=== PATIENT | female | born 1940 | race Caucasian/White ===

== ENCOUNTER → 2016-08-01 | Outpatient (CLI) | payer OTHER ==
[~2016-08-01] MED LIST: ASPI81TA28 PO; CMD4 PO; CYAN500T PO; DOCU100C31 PO; ISOS-10 PO; LOSA25TA18 PO; METO50TA16 PO; NTRGSL/4 SL; OMEP20CA59 PO; PRENTAB26 PO; VITA400C3 PO; WARF-285 PO
[2016-08-01 13:23] LABS: INR 1.8 (0.9-1.1); PROTHROMBIN TIME (PATIENT) 20.1 SECONDS (9.0-12.0)
== END | disposition home or self-care (01) ==
LOC: C.LABSPEC 12:26
PROVIDERS: ATTEND Internal Medicine Cardiovascular Disease
DX: Z51.81 Encounter for therapeutic drug level monitoring (principal); Z79.01 Long term (current) use of anticoagulants

== ENCOUNTER → 2016-08-29 | Outpatient (CLI) | payer OTHER ==
[2016-08-29 13:44] LABS: INR 3.1 (0.9-1.1); PROTHROMBIN TIME (PATIENT) 34.6 SECONDS (9.0-12.0)
== END | disposition home or self-care (01) ==
LOC: C.LABSPEC 13:03
PROVIDERS: ATTEND Internal Medicine Cardiovascular Disease
DX: Z79.01 Long term (current) use of anticoagulants (principal); Z51.81 Encounter for therapeutic drug level monitoring

== ENCOUNTER → 2016-09-26 | Outpatient (CLI) | payer OTHER ==
[2016-09-26 13:58] LABS: INR 3.3 (0.9-1.1)
== END | disposition home or self-care (01) ==
LOC: C.LABSPEC 12:51
PROVIDERS: ATTEND Internal Medicine Cardiovascular Disease
DX: Z51.81 Encounter for therapeutic drug level monitoring (principal); Z79.01 Long term (current) use of anticoagulants

== ENCOUNTER → 2016-10-24 | Outpatient (CLI) | payer OTHER ==
[2016-10-24 14:13] LABS: INR 2.3 (0.9-1.1); PROTHROMBIN TIME (PATIENT) 25.1 SECONDS (9.0-12.0)
== END | disposition home or self-care (01) ==
LOC: C.LABSPEC 12:52
PROVIDERS: ATTEND Internal Medicine Cardiovascular Disease
DX: Z51.81 Encounter for therapeutic drug level monitoring (principal); Z79.01 Long term (current) use of anticoagulants

== ENCOUNTER → 2016-11-21 | Outpatient (CLI) | payer OTHER ==
[2016-11-21 12:24] LABS: INR 2.4 (0.9-1.1); PROTHROMBIN TIME (PATIENT) 26.9 SECONDS (9.0-12.0)
== END | disposition home or self-care (01) ==
LOC: C.LABSPEC 11:53
PROVIDERS: ATTEND Internal Medicine Cardiovascular Disease
DX: Z51.81 Encounter for therapeutic drug level monitoring (principal); Z79.01 Long term (current) use of anticoagulants

== ENCOUNTER → 2016-12-23 | Outpatient (CLI) | payer OTHER ==
--- NOTE | 2016-12-23 15:28 | DIAGNOSTIC IMAGING REPORT ---
CHEST 2 VIEWS ROUTINE HISTORY: Bronchitis, pneumonia COMPARISON: Chest CT 08/11/2016. Chest 01/23/2015. FINDINGS: Postoperative changes consistent with prior right upper lobectomy. This accounts for the volume loss within the right hemithorax. Linear density at the left midlung zone favor subsegmental atelectasis or scarring. The lungs are otherwise clear. Poststernotomy changes. The heart is normal in size. Aortic arch calcifications. No pleural effusions. No pneumothorax. Mild emphysema. IMPRESSION: 1. Linear density at the left midlung zone favor scarring or subsegmental atelectasis. 2. Emphysema. 3. Postoperative changes within the right hemithorax. Electronically signed by: Fuad Benton M.D. 12/23/2016 3:27 PM Dictated Date/Time: 12/23/2016 3:25 PM
== END | disposition home or self-care (01) ==
LOC: C.RAD 14:52
PROVIDERS: ATTEND Internal Medicine
DX: J40 Bronchitis, not specified as acute or chronic (principal); J43.9 Emphysema, unspecified

== ENCOUNTER → 2016-12-23 | Outpatient (CLI) | payer OTHER ==
[2016-12-23 19:54] LABS: PROTHROMBIN TIME (PATIENT) > 100.0 SECONDS (9.0-12.0)
[2016-12-23 19:55] LABS: INR > 8.0 (0.9-1.1)
== END | disposition home or self-care (01) ==
LOC: C.LABSPEC 17:50
PROVIDERS: ATTEND Internal Medicine Cardiovascular Disease
DX: Z51.81 Encounter for therapeutic drug level monitoring (principal); Z79.01 Long term (current) use of anticoagulants

== ENCOUNTER → 2016-12-26 | Outpatient (CLI) | payer OTHER ==
[2016-12-26 18:07] LABS: PROTHROMBIN TIME (PATIENT) 67.7 SECONDS (9.0-12.0)
[2016-12-26 18:14] LABS: INR 5.9 (0.9-1.1)
== END | disposition home or self-care (01) ==
LOC: C.LABSPEC 11:46
PROVIDERS: ATTEND Internal Medicine Cardiovascular Disease
DX: Z51.81 Encounter for therapeutic drug level monitoring (principal); Z79.01 Long term (current) use of anticoagulants

== ENCOUNTER → 2016-12-29 | Outpatient (CLI) | payer OTHER ==
[2016-12-29 13:26] LABS: INR 1.6 (0.9-1.1); PROTHROMBIN TIME (PATIENT) 17.8 SECONDS (9.0-12.0)
== END | disposition home or self-care (01) ==
LOC: C.LABSPEC 12:18
PROVIDERS: ATTEND Internal Medicine Cardiovascular Disease
DX: Z51.81 Encounter for therapeutic drug level monitoring (principal); Z79.01 Long term (current) use of anticoagulants

== ENCOUNTER → 2017-01-02 | Outpatient (CLI) | payer OTHER ==
[2017-01-02 12:20] LABS: INR 1.8 (0.9-1.1); PROTHROMBIN TIME (PATIENT) 19.3 SECONDS (9.0-12.0)
== END | disposition home or self-care (01) ==
LOC: C.LABSPEC 10:30
PROVIDERS: ATTEND Internal Medicine Cardiovascular Disease
DX: Z79.01 Long term (current) use of anticoagulants (principal); Z51.81 Encounter for therapeutic drug level monitoring

== ENCOUNTER → 2017-01-06 | Outpatient (CLI) | payer OTHER ==
[2017-01-06 12:45] LABS: INR 2.4 (0.9-1.1); PROTHROMBIN TIME (PATIENT) 26.6 SECONDS (9.0-12.0)
== END | disposition home or self-care (01) ==
LOC: C.LABSPEC 12:18
PROVIDERS: ATTEND Internal Medicine Cardiovascular Disease
DX: Z51.81 Encounter for therapeutic drug level monitoring (principal); Z79.01 Long term (current) use of anticoagulants

== ENCOUNTER → 2017-01-13 | Outpatient (CLI) | payer OTHER ==
[2017-01-13 13:15] LABS: BASO % 0.4 %; BASO ABS # 0.02 K/uL (0-0.2); COMPLETE YES; EOS % 1.4 %; HEMATOCRIT 38.8 % (37-47); LYMPH ABS # 1.42 K/uL (1.2-3.4); MEAN CELL VOLUME 96.3 fL (80-100); MEAN CORPUSCULAR HEMOGLOBIN 29.5 pg (25-34); MEAN CORPUSCULAR HGB CONC 30.7 g/dl (32-36); MEAN PLATELET VOLUME 11.1 fL (7.4-10.4); NEUT % 63.2 %; PLATELET COUNT 219 K/uL (130-400); RED BLOOD COUNT 4.03 M/uL (4.2-5.4); WHITE BLOOD COUNT 5.68 K/uL (4.8-10.8)
[2017-01-13 13:40] LABS: INR 2.2 (0.9-1.1); PROTHROMBIN TIME (PATIENT) 24.3 SECONDS (9.0-12.0)
[2017-01-13 14:57] LABS: ALKALINE PHOSPHATASE 77 U/L (45-117); ALT/SGPT 21 U/L (12-78); AST/SGOT 10 U/L (15-37); BLOOD UREA NITROGEN 17 mg/dl (7-18); BUN/CREATININE RATIO 13.8 (10-20); CALCIUM 8.8 mg/dl (8.5-10.1); CARBON DIOXIDE 28 mmol/L (21-32); CHLORIDE 108 mmol/L (98-107); CHOLESTEROL 212 mg/dl (0-200); CHOLESTEROL/HDL RATIO 4.2; GLUCOSE 89 mg/dl (70-99); HDL CHOLESTEROL 50 mg/dl; POTASSIUM 4.1 mmol/L (3.5-5.1); SODIUM 143 mmol/L (136-145)
[2017-01-13 15:02] LABS: ALB/GLOB RATIO 0.9 (0.9-2); TRIGLYCERIDES 105 mg/dl (0-150); VERY LOW DENSITY LIPOPROT CALC 21 mg/dl
== END | disposition home or self-care (01) ==
LOC: C.LABSPEC 12:24
PROVIDERS: ATTEND Internal Medicine Cardiovascular Disease
DX: I10 Essential (primary) hypertension (principal); I25.10 Atherosclerotic heart disease of native coronary artery without angina pectoris; E78.5 Hyperlipidemia, unspecified; Z79.01 Long term (current) use of anticoagulants; Z51.81 Encounter for therapeutic drug level monitoring

== ENCOUNTER → 2017-01-29 | Outpatient (CLI) | payer OTHER ==
[2017-01-29 13:05] LABS: INR 1.9 (0.9-1.1); PROTHROMBIN TIME (PATIENT) 20.4 SECONDS (9.0-12.0)
== END | disposition home or self-care (01) ==
LOC: C.LABSPEC 10:30
PROVIDERS: ATTEND Internal Medicine Cardiovascular Disease
DX: Z51.81 Encounter for therapeutic drug level monitoring (principal); Z79.01 Long term (current) use of anticoagulants

== ENCOUNTER → 2017-02-27 | Outpatient (CLI) | payer OTHER ==
--- NOTE | 2017-02-27 08:52 | DIAGNOSTIC IMAGING REPORT ---
CT SCAN OF THE CHEST WITHOUT IV CONTRAST CLINICAL HISTORY: COPD. History of lung cancer. COMPARISON STUDY: Chest CT scans dated 08/11/2016 and 12/15/2014. TECHNIQUE: CT scan of the thorax was performed from the thoracic inlet to the upper abdomen. Images are reviewed in the axial, sagittal, and coronal planes. IV contrast was not administered for this examination as per the referring clinician. A dose lowering technique was utilized adhering to the principles of ALARA. CT DOSE: 242.40 mGycm FINDINGS: Thyroid: Mildly atrophic. Thoracic aorta: There is advanced atherosclerotic calcification of the thoracic aorta, which is normal in caliber and demonstrates standard 3-vessel arch anatomy. Heart: The patient is status post midline sternotomy. The heart is top normal in size and without pericardial effusion. The coronary arteries are densely calcified. The pulmonary trunk is normal in caliber. Lungs and pleural spaces: Emphysema is noted. There are postoperative changes from right upper lobe resection. The trachea and central airways are clear. Foci of atelectasis versus scarring are identified in the left upper lobe and lingula. No lobar consolidation or pleural effusion is identified. Foci of tree-in-bud opacification are seen in the right lower lobe on image #110 and in the left upper lobe on image #111. This suggest a mild infectious/inflammatory pneumonitis. A 4 mm groundglass nodule in the right lower lobe seen on image #139 and a 3 mm nodule at the right lung base seen on image #185 have not significant changed dating back to 12/15/2014. Mediastinum: There is no mediastinal lymphadenopathy. Laura: Not well assessed without IV contrast. Axillae: There is no axillary lymphadenopathy. Upper abdomen: There is a tiny hiatal hernia. Calcified granulomas are noted in the liver. A 1.4 cm right adrenal nodule meets CT criteria for a fat-containing adenoma. A cyst is partially imaged in the upper pole of the right kidney. Skeletal structures: The skeletal structures are osteopenic. No lytic or blastic bony lesions are seen. IMPRESSION: 1. Emphysema and postoperative change from right upper lobe resection. 2. There is no convincing evidence of intrathoracic metastatic disease. 3. A 4 mm groundglass nodule in the right lower lobe has been present dating back to 2014. Continued attention at regularly scheduled follow-up is recommended. 4. There are foci of tree-in-bud nodularity seen within the right lower and left upper lobes. This suggest a mild infectious/inflammatory pneumonitis. Clinical correlation will be required. 3-6 month follow-up CT is recommended to document resolution. 5. There is no lobar consolidation or pleural effusion. 6. Additional findings as above. Electronically signed by: Mat Givens M.D. 02/27/2017 8:50 AM Dictated Date/Time: 02/27/2017 8:36 AM
== END | disposition home or self-care (01) ==
LOC: C.CTS 08:11
PROVIDERS: ATTEND Internal Medicine Critical Care Medicine
DX: J44.9 Chronic obstructive pulmonary disease, unspecified (principal); R91.1 Solitary pulmonary nodule; R91.8 Other nonspecific abnormal finding of lung field

== ENCOUNTER → 2017-04-10 | Outpatient (CLI) | payer OTHER ==
--- NOTE | 2017-04-10 08:50 | DIAGNOSTIC IMAGING REPORT ---
(CHEST) THORAX WITHOUT CT DOSE: 249.46 mGycm HISTORY: J44.9 COPD TECHNIQUE: Multiaxial CT images of the chest were performed without contrast. A dose lowering technique was utilized adhering to the principles of ALARA. COMPARISON: Chest CT 02/27/2017. FINDINGS: No pleural effusions. No pneumothorax. Status post wedge resection within the left upper lobe. Suture material and surrounding scarlike density remains unchanged. Linear scarlike densities within the base of the left lower lobe persists. Stable 4 mm nodule within the base of the left lower lobe on image 195. Stable irregular density within the right upper lobe anteriorly. This favors postoperative scarring. Stable 4 mm nodule within the right lower lobe on image 186. A few scattered small areas of peripheral tree-in-bud nodular opacities have slightly improved. No new focal lung consolidations. The central airways remain patent. Poststernotomy changes. No suspicious lytic or blastic osseous lesions. Calcified normal caliber thoracic aorta. No mediastinal or hilar lymphadenopathy. Limited views of the upper abdomen demonstrate a few calcifications within the liver. The spleen and adrenal glands are within normal limits. Partially visualized hypodense lesion within the right kidney favors a cyst. IMPRESSION: 1. Slight improvement in the scattered focal areas of tree-in-bud nodularity. This suggests a resolving bronchiolitis. 2. Stable expected postoperative changes as described above. No definite evidence for metastatic disease. 3. Stable subcentimeter pulmonary nodules. Continued follow-up is recommended to ensure resolution. Electronically signed by: Fuad Benton M.D. 04/10/2017 8:49 AM Dictated Date/Time: 04/10/2017 8:39 AM
== END | disposition home or self-care (01) ==
LOC: C.CTS 08:25
PROVIDERS: ATTEND Internal Medicine Critical Care Medicine
DX: C34.11 Malignant neoplasm of upper lobe, right bronchus or lung (principal); J44.9 Chronic obstructive pulmonary disease, unspecified; R91.8 Other nonspecific abnormal finding of lung field

== ENCOUNTER → 2017-06-15 | Outpatient (CLI) | payer OTHER ==
--- NOTE | 2017-06-15 14:45 | MAMMOGRAPHY REPORT ---
BILATERAL DIGITAL SCREENING MAMMOGRAM TOMOSYNTHESIS WITH CAD: 06/15/2017 CLINICAL HISTORY: Routine screening. Patient has no complaints. TECHNIQUE: Breast tomosynthesis in addition to standard 2D mammography was performed. Current study was also evaluated with a Computer Aided Detection (CAD) system. COMPARISON: Comparison is made to exams dated: 06/12/2016 mammogram, 02/14/2014 mammogram, 02/10/2013 mammogram, 11/15/2010 mammogram, 11/15/2010 ultrasound, and 11/11/2010 mammogram - [facility]. BREAST COMPOSITION: The tissue of both breasts is heterogeneously dense, which may obscure small mas ses. FINDINGS: There is a possible area of architectural distortion in the posterior right breast along t he posterior nipple line on the MLO view, best seen on MLO tomosynthesis slice 40/63, but thought to project medially based on the CC view. Additional spot compression tomosynthesis views with possible ultrasound are recommended. There are possible new grouped microcalcifications in the upper outer posterior left breast, and anot her area of microcalcifications in the 6:00 to 7:00 posterior left breast for which spot magnificatio n views are recommended. No other areas of distortion, obvious mass or asymmetry is seen bilaterally. There are numerous kin gn rim calcification scattered in the breasts. IMPRESSION: ACR BI-RADS CATEGORY 0: INCOMPLETE EVALUATION: NEED ADDITIONAL IMAGING EVALUATION The possible area of architectural distortion in the posterior right breast, and two groupings of sharifa rocalcifications in the left breast need additional imaging evaluation. The patient will be called to schedule an appointment. Approximately 10% of breast cancers are not detected with mammography. A negative mammographic report should not delay biopsy if a clinically suggestive mass is present. Elin Dunn M.D. ay/:06/15/2017 13:05:32 Manager Utility: Elda BARNARD(Marge)(Krissy), [facility] letter sent: Addl Imaging 0 BI-RADS Code: ACR BI-RADS Category 0: Incomplete Evaluation: Need Additional Imaging Evaluation
== END | disposition home or self-care (01) ==
LOC: C.MAMM 11:37
PROVIDERS: ATTEND Internal Medicine
DX: Z12.31 Encounter for screening mammogram for malignant neoplasm of breast (principal); N64.89 Other specified disorders of breast

== ENCOUNTER → 2017-06-24 | Outpatient (CLI) | payer OTHER ==
--- NOTE | 2017-06-25 07:55 | MAMMOGRAPHY REPORT ---
BILATERAL DIGITAL DIAGNOSTIC MAMMOGRAM TOMOSYNTHESIS AND TARGETED RIGHT ULTRASOUND: 06/24/2017 CLINICAL HISTORY: Callback from screening mammography for 2 areas of microcalcifications in the left breast, and possible architectural distortion in the right breast. TECHNIQUE: Spot magnification left CC, ML and spot compression tomosynthesis right CC and MLO views were obtained. COMPARISON: Comparison is made to exams dated: 06/15/2017 mammogram, 06/12/2016 mammogram, 02/14/2014 mammogram, 02/10/2013 mammogram, 11/11/2010 mammogram, and 11/09/2009 mammogram - [facility]. BREAST COMPOSITION: The tissue of both breasts is heterogeneously dense, which may obscure small mas ses. FINDINGS: Spot magnification views of the left breast demonstrate diffuse benign rim calcifications s cattered in the breast as well as mild vascular calcification. There is a grouping of round and punc muñoz microcalcifications in the 6:00 posterior left breast measuring approximately 4 mm and another s maller 3 mm grouping posterior to the first. When comparing to all available prior mammograms, these microcalcifications have been present dating back to approximately 2009 and the do not appear signif icantly increased in number, therefore most likely benign. However, there is another grouping of nataliya nt amorphous and somewhat linear microcalcifications measuring 8 mm in the upper outer posterior left breast, that appear increased in number comparing to the 2012 and 2013 mammograms. This cluster is indeterminate warranting definitive characterization with a stereotactic guided biopsy. The additional spot compression tomosynthesis views of the right breast demonstrate a persistent foca l area of architectural distortion in the upper inner posterior right breast near the fatglandular i nterface. This distortion is indeterminate and further evaluation with ultrasound was performed. Targeted ultrasound was performed in the medial right breast. In the 2:00 axis, 6 cm from the nipple , there is an ill-defined hypoechoic anti-parallel shadowing mass with indistinct borders and mixed h yperechoic periphery. It measures approximately 8.3 x 9.0 x 8.8 mm, and is suspicious for malignancy . Definitive characterization with an ultrasound-guided core needle biopsy is recommended. IMPRESSION: ACR BI-RADS CATEGORY 4: SUSPICIOUS, TARGETED ULTRASOUND ACR BI-RADS CATEGORY 4: SUSPICIO US 1. There is a persistent focal area of architectural distortion in the 2:00 posterior right breast o n spot compression tomosynthesis views, and an ill-defined hypoechoic taller than wide shadowing mass measuring 9 mm in the 2:00 right breast on ultrasound. Definitive characterization with an ultrasou nd-guided core needle biopsy is recommended. 2. Stereotactic guided biopsy is recommended for an 8 mm cluster of amorphous and linear microcalcif ications in the upper outer posterior left breast. 3. Another grouping of round and punctate microcalcifications in the 6:00 posterior left breast appe ars stable dating back to 2009 and therefore most likely benign. These results and recommendations were discussed with the patient at the time of the exam. She tenta tively scheduled the bilateral breast biopsies prior to leaving our department. She is currently on Coumadin for prior vascular bypasses and I would prefer she remain on Coumadin for the biopsies, know ing she has a slight increased risk of bruising and bleeding. Approximately 10% of breast cancers are not detected with mammography. A negative mammographic report should not delay biopsy if a clinically suggestive mass is present. Elin Dunn M.D. ay/:06/24/2017 15:47:16 Healthcare Liaison: Soni DRUMMOND)(Krissy), [facility] letter sent: Abnormal 4/5 BI-RADS Code: ACR BI-RADS Category 4: Suspicious Ultrasound BI-RADS: ACR BI-RADS Category 4: Suspici ous
== END | disposition home or self-care (01) ==
LOC: C.MAMM 13:50
PROVIDERS: ATTEND Internal Medicine
DX: N64.9 Disorder of breast, unspecified (principal); R92.0 Mammographic microcalcification found on diagnostic imaging of breast

== ENCOUNTER → 2017-07-08 | Outpatient (CLI) | payer OTHER ==
--- NOTE | 2017-07-08 11:02 | Discharge Instructions ---
Discharge Instructions Procedure Procedure Date: Jul 08, 2017. Reason for visit: Right Mass. Discharge Discharge Date: Jul 08, 2017. Discharge Diagnosis: status post breast biopsy Instructions Activity Recommendations: Additional Limitations (see below) Return to School/Work: no limitations Recommended Home Diet: No Limitations Provider Instructions: ACTIVITY RECOMMENDATIONS: * No lifting, pushing, pulling or exercising the affected side for three days. RETURN TO SCHOOL/WORK: * You may return to work/school after the procedure, but do not perform any strenuous activities for 24 to 48 hours. MEDICATIONS: * Tylenol (two 325 mg) every four to six hours if needed for mild pain (if not allergic to Tylenol). DIET: * Resume previous diet. SPECIAL CARE INSTRUCTIONS: * Keep biopsy site dry for 24 hours. May shower after 24 hours, but do not soak (bathe) incision. * May remove Tegaderm (plastic patch) tomorrow AFTER showering. * Leave the steri-strips on for one week. Allow the steri-strips to fall off by themselves. If not off after one week, you may remove them. You may place a Bandaid crosswise over the strips, if desired. * Apply ice 10 minutes on and 10 minutes off as needed. * Wear a bra at bedtime to sleep more comfortably for 2-3 days. * Your referring physician should have the results after approximately 5 to 7 business days. * Call for unusual bleeding, fever, drainage, etc or if you have any questions call during normal business hours or after hours call Dr Ruvalcaba, [phone]. FOLLOW UP VISIT: Follow-up with Referring Physician as scheduled. Allergies Coded Allergies: Iodine (Verified Allergy, Severe, MICHELLE SKIN, 01/23/15) Statins (Verified Adverse Reaction, Intermediate, FEET GET INCREASED NUMBNESS , 12/13/14) Ciprofloxacin (Verified Adverse Reaction, Unknown, AGGREVATES NEUROPATHY, 12/13/14) Clopidogrel (Verified Adverse Reaction, Unknown, worsening numbness, ) Fany Stewart Recommendations: Call your doctor if: * Temperature above 101 degrees * Pain not relieved by pain medicine ordered * There is increased drainage or redness from any incision * You have any unanswered questions or concerns. Your Doctors Instructions noted above were prepared by provider Viki Ruvalcaba. Patient Signature Section: Patient Instructions Signature Page Loree Rodriguez Patient (or Guardian) Signature/Date: I have read and understand the instructions given to me by my caregivers. Caregiver/RN/Doctor Signature/Date: The above-named patient and/or guardian has received patient instructions on this date. + Original Patient Signature Page (only) stays with chart. Please make copy for patient.
--- NOTE | 2017-07-08 15:59 | MAMMOGRAPHY REPORT ---
ULTRASOUND GUIDED BIOPSY RIGHT BREAST: 07/08/2017 CLINICAL HISTORY: Suspicious right 2:00 breast mass. PATIENT CONSENT: The procedure, risks and benefits were discussed with the patient and informed writt en consent was obtained. A timeout was performed immediately prior to the procedure. PROCEDURE DESCRIPTION: With ultrasound guidance, aseptic technique, and lidocaine as the local anesth etic (1% lidocaine to anesthetize the skin and 1% lidocaine with epinephrine to anesthetize the deepe r tissues), the mass of concern in the right 2:00 breast was sampled 5 times with a 14-gauge Achieve biopsy needle. Immediately thereafter, with ultrasound guidance, aseptic technique, and lidocaine a s the local anesthetic, a metallic localizer clip was placed at the biopsy site. Direct pressure was applied to the site immediately post procedure and hemostasis was achieved. Postprocedure unilatera l mammograms were performed to confirm placement of the clip in the expected location of the breast m ass. The patient tolerated the procedure without complication. She was given wound care instructio ns. The specimens were sent to pathology for analysis. COMPARISON: Comparison is made to exams dated: 06/24/2017 ultrasound, 06/24/2017 mammogram, 06/12/20 16 mammogram, 06/15/2017 mammogram, 02/14/2014 mammogram, and 02/10/2013 mammogram - [facility]. IMPRESSION: ULTRASOUND GUIDED BIOPSY 1. Ultrasound guided core needle biopsy of the suspicious mass in the right 2:00 breast, with clip p lacement. The patient will receive pathology results from her referring provider. 2. During the prior diagnostic workup, a stereotactic biopsy was recommended of indeterminate calcif ications in the left upper outer quadrant. However, the patient reports that she cannot lie on her s tomach for the procedure. Therefore, needle localization and surgical biopsy is recommended. Viki Ruvalcaba M.D. /:07/08/2017 11:05:10 Autocad Detailer: Soni BARNARD(Marge)(M), [facility]
--- NOTE | 2017-07-08 16:03 | MAMMOGRAPHY REPORT ---
UNILATERAL RIGHT DIGITAL DIAGNOSTIC MAMMOGRAM TOMOSYNTHESIS: 07/08/2017 CLINICAL HISTORY: Status post right breast biopsy. TECHNIQUE: Breast tomosynthesis in addition to standard 2D mammography was performed. Postprocedura l right CC and ML tomosynthesis images including C views were obtained. COMPARISON: Comparison is made to exams dated: 06/24/2017 ultrasound, 06/24/2017 mammogram, 06/15/20 17 mammogram, 06/12/2016 mammogram, 02/14/2014 mammogram, and 02/10/2013 mammogram - [facility]. BREAST COMPOSITION: The tissue of the right breast is heterogeneously dense, which may obscure small masses. FINDINGS: A new ribbon-shaped biopsy marker clip is seen at the site of the biopsied mass in the rig ht 2:00 breast posteriorly. No significant postbiopsy hematoma is seen. IMPRESSION: POST PROCEDURE IMAGING FOR MARKER PLACEMENT New biopsy marker clip status post ultrasound-guided biopsy of the right 2:00 breast mass. Pathology results are pending. Approximately 10% of breast cancers are not detected with mammography. A negative mammographic report should not delay biopsy if a clinically suggestive mass is present. Viki Ruvalcaba M.D. ah/:07/08/2017 11:11:44 Curriculum And Instruction Specialist: Soni BARNARD(Marge)(Krissy), [facility] BI-RADS Code: Post Procedure Imaging For Marker Placement
== END | disposition home or self-care (01) ==
LOC: C.MAMM 10:12
PROVIDERS: ATTEND Internal Medicine
DX: N63.10 Unspecified lump in the right breast, unspecified quadrant (principal); D05.11 Intraductal carcinoma in situ of right breast

== ENCOUNTER 2017-08-19 07:43 | Day surgery (SDC) | payer OTHER ==
[2017-08-03 11:22] VITALS: BMI 28.0
--- NOTE | 2017-08-03 12:11 | PAT Medication Instructions ---
Service Date Aug 03, 2017. Current Home Medication List Aspirin (Aspirin Ec), 81 MG PO QAM Clonidine Hcl (Catapres), 1 TAB PO UD PRN for SEVERE HYPERTENSION Isosorbide Mononitrate (Isosorbide Mononitrate ER), 60 MG PO QAM Losartan Potassium (Cozaar), 12.5 MG PO QAM Metoprolol Tartrate (Lopressor) (Lopressor), 50 MG PO BID Nitroglycerin (Nitrostat), 1 TAB SL UD PRN for prn Omeprazole (Prilosec), 20 MG PO QAM Vitamin E (Vitamin E 400 Iu), 400 INTER.UNIT PO QAM Warfarin Sodium (Warfarin Sodium), 4.5 MG PO DAILY [Nasonex], 1 SPRAY DOMO UD PRN for PRN Medication Instructions For Your Scheduled Surgery -Continue as directed: Nitroglycerin (Nitrostat), 1 TAB SL UD PRN for prn - Hold the following medications 2 weeks prior to surgery: Vitamin E (Vitamin E 400 Iu), 400 INTER.UNIT PO QAM - Contact your prescriber for instructions for: Warfarin Sodium (Warfarin Sodium), 4.5 MG PO DAILY -Continue as directed unless otherwise instructed by your painter hand: Aspirin (Aspirin Ec), 81 MG PO QAM - Hold the following medications the morning of surgery: Losartan Potassium (Cozaar), 12.5 MG PO QAM - Take the following medications the morning of surgery with a sip of water: Isosorbide Mononitrate (Isosorbide Mononitrate ER), 60 MG PO QAM Omeprazole (Prilosec), 20 MG PO QAM [Nasonex], 1 SPRAY DOMO UD PRN for PRN (if needed) Metoprolol Tartrate (Lopressor) (Lopressor), 50 MG PO BID Clonidine Hcl (Catapres), 1 TAB PO UD PRN for SEVERE HYPERTENSION (if needed) - Take the following medications as scheduled the night before surgery: [Nasonex], 1 SPRAY DOMO UD PRN for PRN (if needed) Metoprolol Tartrate (Lopressor) (Lopressor), 50 MG PO BID Clonidine Hcl (Catapres), 1 TAB PO UD PRN for SEVERE HYPERTENSION (if needed) If you have any questions please call us at [phone] or [phone] or [phone]
[2017-08-03 13:31] LABS: BASO % 0.2 %; BASO ABS # 0.02 K/uL (0-0.2); EOS % 0.5 %; EOS ABS # 0.04 K/uL (0-0.5); HEMATOCRIT 36.8 % (37-47); HEMOGLOBIN 12.2 g/dL (12.0-16.0); IG# 0.02 K/uL (0.00-0.02); LYMPH % 14.5 %; LYMPH ABS # 1.26 K/uL (1.2-3.4); MEAN CELL VOLUME 94.8 fL (80-100); MEAN CORPUSCULAR HEMOGLOBIN 31.4 pg (25-34); MEAN CORPUSCULAR HGB CONC 33.2 g/dl (32-36); MEAN PLATELET VOLUME 10.9 fL (7.4-10.4); MONO % 11.6 %; MONO ABS # 1.01 K/uL (0.11-0.59); NEUT ABS # 6.35 K/uL (1.4-6.5); PLATELET COUNT 275 K/uL (130-400); RED CELL DISTRIBUTION WIDTH CV 12.9 % (11.5-14.5); RED CELL DISTRIBUTION WIDTH SD 44.1 fL (36.4-46.3)
[2017-08-03 13:51] LABS: CALCIUM 9.2 mg/dl (8.5-10.1); CREATININE 1.09 mg/dl (0.60-1.20); POTASSIUM 4.2 mmol/L (3.5-5.1)
[~2017-08-19] VITALS: Ht 157.5 cm; Wt 69.1 kg
[~2017-08-19 07:43] MED LIST changes: +CEFAZOLIN 2000MG IV PUSH 10 ML IV SCH; +CLON0.1T12 PO; -CMD4 PO; -CYAN500T PO; -DOCU100C31 PO; +LACTATED RINGER'S 1000ML 1,000 ML IV SCH; +NASONEX NAE; -PRENTAB26 PO
[2017-08-19] MEDS ORDERED: ENOX80IN SQ (09:25)
[2017-08-19 09:46] LABS: INR 1.1 (0.9-1.1); PTT PATIENT 26.6 SECONDS (21.0-31.0)
[2017-08-19 09:56] VITALS: BP 208/78; PULSE 71; TEMP 36.6; O2SAT 94
[2017-08-19] MEDS ORDERED: ONDANSETRON INJ 2 MG/ML 2 ML VIAL IV PRN ×2 (10:15→13:30)
[2017-08-19] MEDS ORDERED: EpHEDrine SULFATE INJ 50 MG/ML AMP IV PRN (10:15)
[2017-08-19] MEDS ORDERED: PHENYLEPHRINE 100MCG/ML 5ML SYR IV PRN (10:15)
[2017-08-19] MEDS ORDERED: ATROPINE SULFATE 0.1 MG/ML 5ML SYR IV PRN (10:15)
[2017-08-19 10:21] VITALS: BP 208/78; PULSE 71; TEMP 36.6; O2SAT 94; Ht 157.5 cm; Wt 69.1 kg
[2017-08-19] MEDS ORDERED: LIDOCAINE HCL 2% 2 ML VIAL (20MG/ML) ONE (10:37)
[2017-08-19] MEDS ORDERED: MIDAZOLAM HCL 1 MG/ML 2ML VIAL ONE (10:37)
[2017-08-19] MEDS ORDERED: PROPOFOL IV EMULSION 10 MG/ML 20 ML VIAL IV ONE (10:37)
[2017-08-19] MEDS ORDERED: FENTANYL CITRATE INJ 50 MCG/1 ML 2 ML VIAL ONE (10:38)
--- NOTE | 2017-08-19 10:38 | DIAGNOSTIC IMAGING REPORT ---
LYMPHOSCINTIGRAPHY CLINICAL HISTORY: Right-sided breast cancer. PROCEDURE: Using standard sterile technique, 4 intradermal and one deep injection of 0.5 mCi of Lymphoseek was placed in the right breast. The patient tolerated the procedure well. There were no immediate complications. The patient was subsequently transported to the surgical suite. No imaging was obtained at the referring physician's request. IMPRESSION: Injection of 0.5 mCi of Lymphoseek in the right breast. Electronically signed by: Tello Rosado M.D. 08/19/2017 10:36 AM Dictated Date/Time: 08/19/2017 10:35 AM
--- NOTE | 2017-08-19 10:38 | History & Physical Bridge Note ---
H&P Re-Evaluation Bridge Note: I have examined the patient, reviewed the History & Physical and in the interval since the performance of the History & Physical I have noted the following changes of clinical significance: No changes noted
[2017-08-19] MEDS ORDERED: BUPIVACAINE/EPINEPHRINE 0.5% MPF 1:200,000 30 ML VIAL ONE (10:53)
--- NOTE | 2017-08-19 13:01 | [facility] Post Operative Brief Note ---
Immediate Operative Summary Operative Date Aug 19, 2017. Pre-Operative Diagnosis right breast cancer; left breast abnormal mammogram Post-Operative Diagnosis same as pre-op Procedure(s) Performed 1. right breast lumpectomy/partial mastectomy with SLN bx 2. 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 right breast lump 2. right sentinel lymph node (s) 3. left breast lump Anesthesia Type General Complication(s) none Disposition Disposition: Recovery Room / PACU
[2017-08-19] MEDS ORDERED: ARISTA ABSORBABLE HEMOSTAT 3GM TOP ONE (13:06)
[2017-08-19] MEDS ORDERED: SODIUM CHLORIDE 0.9% 1000ML 1,000 ML IV SCH (13:19)
[2017-08-19] MEDS ORDERED: HYDR-5688 PO (13:24)
--- NOTE | 2017-08-19 13:24 | [facility] Operative Report ---
Operative Report Operative Date Aug 19, 2017. Pre-Operative Diagnosis right breast cancer; left breast abnormal mammogram Post-Operative Diagnosis same as pre-op Procedure(s) Performed 1. right breast lumpectomy/partial mastectomy with SLN bx 2. left breast lumpectomy Surgeon emy Life Skills Coach Surgeon(s) christ spain Estimated Blood Loss 20 cc Findings same as pre-op Specimens 1. right breast lump 2. right sentinel lymph node (s) 3. left breast lump Anesthesia general Complication(s) None Disposition Recovery Room / PACU Description of Procedure Prior to coming to the operating room the patient had been taken to nuclear medicine for radioisotope injection as well as to the breast center for needle localization of both breast lesions. She was then brought to the operating room after informed consent was obtained. She was placed in a supine position and after successful placement of a laryngeal mask airway we began by prepping and draping the right breast and axilla. There was not a lot of high activity of radioisotope in the axilla so we started with the lumpectomy. We made an incision just lateral to the entrance of the guidewire and carried this down through the skin and soft tissues with electrocautery. We created flaps and then delivered the wire into the wound itself. I use electrocautery with traction and countertraction to come around the guidewire in 360. We carried this the entire way down to the fascia and then removed the specimen as one piece. We did oriented with sutures please see the OR notes for description of orientation. We did x-ray to ensure that we had the clip and guidewire and proper specimen which radiology verified. We then thoroughly irrigated the wound. We controlled any bleeders using electrocautery. We placed Aubree into the wound to help prevent postoperative hematoma and seroma formation. I then closed it in multiple layers using 2-0 Vicryl for deep layers 3-0 Vicryl for mid layers and 4-0 Monocryl for skin. Benzoin and Steri-Strips were placed as a dressing. By now we had better radioisotope activity in the axilla. I made a small incision with a fresh blade directly over the area of high counts via the neoprobe device. We carried this down through soft tissue and through the axillary fascia. Eventually I was able to locate what would be the only sentinel node. I retracted it and used electrocautery to excise from surrounding tissue. It appeared to be bilobed and I suspect there may have been 2 sentinel nodes. Once we remove these we verified with the neoprobe that they were in fact the sentinel nodes. There was no other radioisotope activity in the axilla after removing this specimen. We then thoroughly irrigated the wound and close it with 2-0 Vicryl for deep layers and 4-0 Monocryl for skin. Benzoin and Steri-Strips were placed for dressing We then completely undraped the patient , re-prepped and re-draped the patient to expose the left breast. my physician's human resource assistant and I changed gowns re- scrubbed and re-gloved. We made an incision just medial to the entrance of the needle and again created skin flaps. We then cut the wire delivered it into the wound. In similar fashion we came around the guidewire in 360 and carried this down almost to the fascia. Once we were well underneath the hook of the guidewire we removed it in 1 specimen. We also oriented this specimen please see the OR notes regarding orientation description. We also sent this to radiology which was verified that we had adequate specimen. We then thoroughly irrigated the wound and close it multiple layers using 2-0 Vicryl for deep layers 3-0 Vicryl for mid layers and 4-0 Monocryl for skin. Benzoin and Steri-Strips were applied as well. The patient was awaken extubated and transferred recovery in stable condition My physician's human resource assistant was present throughout the entire case. She helped prepped the patient. He helped with retraction and exposure throughout the entire case. She also helped with wound closures and dressing placement I attest to the content of the Intraoperative Record and any orders documented therein. Any exceptions are noted below.
--- NOTE | 2017-08-19 13:26 | Anesthesiology Progress Note ---
Anesthesia Post Op Note Date & Time Aug 19, 2017 at 13:25 Vital Signs Pain Intensity: 0 Vital Signs Past 12 Hours Date Time Temp Pulse Resp B/P (MAP) Pulse Ox O2 Delivery O2 Flow Rate FiO2 08/19/17 10:21 36.6 71 20 208/78 (121) 94 Room Air Notes Mental Status: alert / awake / arousable, participated in evaluation Pt Amnestic to Procedure: Yes Nausea / Vomiting: adequately controlled Pain: adequately controlled Airway Patency, RR, SpO2: stable & adequate BP & HR: stable & adequate Hydration State: stable & adequate Anesthetic Complications: no major complications apparent
--- NOTE | 2017-08-19 13:27 | Discharge Instructions ---
Discharge Instructions Date of Service Aug 19, 2017. Admission Reason for Admission: Breast Cancer W/Hosp Loc & Nm Lymph Inj Discharge Discharge Diagnosis / Problem: Breast Cancer with Hosp Loc and Nm Lymph Inj Discharge Goals Goal(s): Decrease discomfort, Improve function, Learn about illness Activity Recommendations Activity Limitations: as noted below Lifting Limitations: no more than 10 pounds Exercise/Sports Limitations: until after follow-up appointment May Resume Sexual Activity: after follow-up appointment Shower/Bathe: tomorrow, keep incision dry Driving or Machine Use: resume 3 days after discharge . Instructions / Follow-Up Instructions / Follow-Up You may remove the gauze dressing over your incisions tomorrow. You may shower , but do not submerge your incisions in water until follow-up appointment with Dr. Arellano. You have steri-strips over your incision, please leave those on until they fall off by themselves. Please call the office at [phone] with any questions or concerns. You may resume your anti-coagulation therapy tomorrow, 08/20/2017. Current Hospital Diet Patient's current hospital diet: Discharge Diet Recommended Diet: Regular Diet Procedures Procedures Performed: 1. right breast lumpectomy/partial mastectomy with SLN bx 2. left breast lumpectomy Pending Studies Studies pending at discharge: yes List of pending studies: Pathology report. Medical Emergencies . Who to Call and When: Medical Emergencies: If at any time you feel your situation is an emergency, please call 911 immediately. . Non-Emergent Contact Non-Emergency issues call your: Primary Care Provider, Surgeon Call Non-Emergent contact if: temperature is above 101.5, your pain is not controlled, wound has increased drainage, wound has increased redness . "Provider Documentation" section prepared by Laurie Harper. . VTE Core Measure Inpt VTE Proph given/why not?: SCD's [place] Drug Monitoring Program Search Results: patient reviewed within database, no issues identified
[2017-08-19] MEDS ORDERED: HYDROCODONE/ACETAMOPHEN 5/325MG TAB PO PRN ×2 (13:30)
[2017-08-19] MEDS: HYDROmorphone INJ 2 MG/ML SYR/VIAL IV PRN ×2 (13:33→13:38)
[2017-08-19 14:05] VITALS: BP 165/70; PULSE 60; TEMP 36.4; O2SAT 95
[2017-08-19 14:40] VITALS: BP 162/74; PULSE 58; O2SAT 95
[2017-08-19 15:10] VITALS: BP 157/70; PULSE 68; TEMP 36.3; O2SAT 97
--- NOTE | 2017-08-19 15:38 | MAMMOGRAPHY REPORT ---
SPECIMEN RIGHT BREAST: 08/19/2017 CLINICAL HISTORY: Status post right breast surgical excision. COMPARISON: Comparison is made to exams dated: 08/19/2017 localization, 08/19/2017 localization, 07/08 ultrasound biopsy, 07/08/2017 mammogram, 06/24/2017 ultrasound, and 06/24/2017 mammogram - [facility]. Findings: A radiograph was performed of the right breast surgical specimen. The localized biopsy mar ker clip and intact needle localization wire are present centrally within the specimen. Faint densit y and distortion is seen adjacent to the biopsy marker clip which corresponds with the localized mass . IMPRESSION: SPECIMEN The imaged specimen contains the preoperatively-localized abnormality. Viki Ruvalcaba M.D. /:08/19/2017 12:43:17 Pole Framer Machine: Amber DRUMMOND)(M), [facility]
--- NOTE | 2017-08-19 15:38 | MAMMOGRAPHY REPORT ---
NEEDLE LOCALIZATION RIGHT BREAST: 08/19/2017 CLINICAL HISTORY: Biopsy proven right breast cancer. PROCEDURE DESCRIPTION: With imaging guidance, aseptic technique, and 1% lidocaine as the local anesth etic, the mass and associated biopsy marker clip were localized with a 5 cm Schrader 2 needle. The pa th of approach was medial. The biopsy marker clip and mass/architectural distortion are located todd g the distal portion of the wire, mostly posterior to the wire. The needle was removed. The patient tolerated the procedure without complication. COMPARISON: Comparison is made to exams dated: 07/08/2017 ultrasound biopsy, 07/08/2017 mammogram, 08/24/2016 ultrasound, 06/24/2017 mammogram, 06/15/2017 mammogram, and 06/12/2016 mammogram - [facility]. IMPRESSION: NEEDLE LOCALIZATION Mammographic guided needle localization of the mass and associated biopsy marker clip in the right up per inner quadrant. Viki Ruvalcaba M.D. /:08/19/2017 08:41:33 Mechanic Insulator: Jasmine Alonzo, [facility]
--- NOTE | 2017-08-19 15:38 | MAMMOGRAPHY REPORT ---
SPECIMEN LEFT BREAST: 08/19/2017 CLINICAL HISTORY: Status post left breast surgical excision. COMPARISON: Comparison is made to exams dated: 08/19/2017 specimen, 08/19/2017 localization, 08/19/2017 localization, 07/08/2017 mammogram, and 06/24/2017 ultrasound - [facility]. Findings: A radiograph was performed of the left breast surgical specimen. The localized calcificati ons and intact needle localization wire are present within the specimen. IMPRESSION: SPECIMEN The imaged specimen contains the preoperatively-localized calcifications. Viki Ruvalcaba M.D. /:08/19/2017 13:18:13 Hand Paster: Jasmine Alonzo, [facility]
--- NOTE | 2017-08-19 15:38 | MAMMOGRAPHY REPORT ---
NEEDLE LOCALIZATION LEFT BREAST: 08/19/2017 CLINICAL HISTORY: Indeterminate calcifications in the left upper outer quadrant. The patient could n ot undergo stereotactic biopsy, therefore, surgical excision was recommended. PROCEDURE DESCRIPTION: With imaging guidance, aseptic technique, and 1% lidocaine as the local anesth etic, the calcifications of concern were localized with a 5 cm Schrader 2 needle. The path of approac h was lateral. The calcifications are located along the distal portion of the wire at the level of t he karmen. The needle was removed. The patient tolerated the procedure without complication. COMPARISON: Comparison is made to exams dated: 07/08/2017 ultrasound biopsy, 07/08/2017 mammogram, 1 08/24/2016 ultrasound, 06/24/2017 mammogram, 06/15/2017 mammogram, and 06/12/2016 mammogram - [facility]. IMPRESSION: NEEDLE LOCALIZATION Needle localization of the indeterminate calcifications in the left upper outer quadrant. Viki Ruvalcaba M.D. /:08/19/2017 08:44:54 Fishing Guide: Jasmine Alonzo, [facility]
== END 2017-08-19 15:27 | disposition home or self-care (01) ==
LOC: C.ACU 07:43
PROVIDERS: ATTEND Surgery
DX: C50.911 Malignant neoplasm of unspecified site of right female breast (principal); D05.82 Other specified type of carcinoma in situ of left breast; I25.10 Atherosclerotic heart disease of native coronary artery without angina pectoris; J44.9 Chronic obstructive pulmonary disease, unspecified; E78.00 Pure hypercholesterolemia, unspecified; G62.9 Polyneuropathy, unspecified; I10 Essential (primary) hypertension; K58.9 Irritable bowel syndrome, unspecified; Z85.118 Personal history of other malignant neoplasm of bronchus and lung; Z79.01 Long term (current) use of anticoagulants; Z87.891 Personal history of nicotine dependence; Z79.82 Long term (current) use of aspirin; Z79.899 Other long term (current) drug therapy

== ENCOUNTER → 2017-12-17 | Outpatient (CLI) | payer OTHER ==
[~2017-12-17] MED LIST changes: -CEFAZOLIN 2000MG IV PUSH 10 ML IV SCH; -CLON0.1T12 PO; -LACTATED RINGER'S 1000ML 1,000 ML IV SCH; -WARF-285 PO; +WARF3TAB6 PO
--- NOTE | 2017-12-17 13:58 | DIAGNOSTIC IMAGING REPORT ---
(CHEST) THORAX WITHOUT CLINICAL HISTORY: 77 years-old Female presenting with J44.9 COPD, moderate R91.[address] scan, lung J20.9 Acute bronchitis. TECHNIQUE: Multidetector CT imaging of the chest was performed without the use of intravenous contrast. IV contrast: None. A dose lowering technique was used consistent with the principles of ALARA (as low as reasonably achievable). COMPARISON: 04/10/2017. CT DOSE (mGy.cm): The estimated cumulative dose is 491.13 mGycm. 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 On soft tissue windows, normal thyroid and thoracic inlet. Postsurgical changes of the upper inner right breast and upper outer left breast suspected. Skin thickening of the breasts may relate to post radiation change, which is more apparent on the left. Calcified left hilar lymph node may relate to history of chronic granulomatous infection. No axillary, supraclavicular, or mediastinal lymphadenopathy. Evaluation of the colt limited without intravenous contrast. Atherosclerosis of the aorta. Normal heart size. Postsurgical changes of median sternotomy with coronary artery bypass grafting. Patency of graft vessels cannot be assessed without intravenous contrast. Coronary artery, aortic valve, and mitral annular calcification. No pericardial or pleural effusion. Normal liver density. Parenchymal calcifications in the liver may relate to a history of chronic granulomatous infection. On lung windows, postsurgical changes of right upper lobectomy with architectural distortion of the right middle lobe and hyperexpansion of the right lower lobe. Peripheral groundglass 4 mm nodule in the right lower lobe (series 4 image 137), unchanged since 2015. Punctate solid peripheral left lower lobe nodule (series 4 image 197), unchanged since 2015. No new nodule. Resolution of tree-in-bud opacities. Subtle mosaic attenuation suggest small airways disease. Central airways patent. On bone windows, normal osseous structures. IMPRESSION: 1. Stable post surgical changes of right upper lobectomy. No lymphadenopathy allowing for noncontrast technique. 2. Resolution of tree-in-bud opacities, which are likely on an infectious or inflammatory basis. 3. Stable subcentimeter groundglass nodule in the right lower lobe and punctate solid nodule in the left lower lobe. These are unchanged since 2014 consistent with a benign etiology. No new nodule. Electronically signed by: Eliecer Augustin M.D. 12/17/2017 1:57 PM Dictated Date/Time: 12/17/2017 1:49 PM
== END | disposition home or self-care (01) ==
LOC: C.CTS 13:33
PROVIDERS: ATTEND Internal Medicine Critical Care Medicine
DX: R91.8 Other nonspecific abnormal finding of lung field (principal); J20.9 Acute bronchitis, unspecified; J44.9 Chronic obstructive pulmonary disease, unspecified